=== PATIENT | male | born 1955 | race Caucasian/White ===

== ENCOUNTER 2016-11-02 16:36 | Emergency (ER) | payer SELFPAY ==
[~2016-11-02] VITALS: Ht 170.2 cm; Wt 63.0 kg
[~2016-11-02 16:36] MED LIST: ASPI1TAB69 PO
[2016-11-02 16:37] VITALS: BP 174/81; PULSE 95; RESP 18; TEMP 98.5; O2SAT 97
== END 2016-11-02 18:00 | disposition left against medical advice (07) ==
LOC: NED 16:36
DX: R10.9 Unspecified abdominal pain (principal)
CPT/HCPCS: 99281

== ENCOUNTER → 2017-04-06 | Outpatient (CLI) | payer OTHER ==
[~2017-04-06] MED LIST changes: +ASPI81TA5 PO
[2017-04-06 12:23] LABS: FOLLICLE STIMULATING HORMONE 24.7 mIU/mL (0.7-10.8); LUTEINIZING HORMONE 10.2 mIU/mL (1.2-10.6)
== END ==
LOC: ELAB 09:39
PROVIDERS: ATTEND Urology
DX: E29.1 Testicular hypofunction (principal)
CPT/HCPCS: 36415; 83001; 83002; 84146

== ENCOUNTER → 2017-04-07 | Outpatient (CLI) | payer OTHER ==
[2017-04-07 11:24] LABS: PROTHROMBIN TIME - PATIENT 10.5 SEC (9.8-11.6)
[2017-04-07 11:49] LABS: BICARBONATE 27.4 MEQ/L (21.0-32.0); POTASSIUM 3.5 MEQ/L (3.5-5.1)
--- NOTE | 2017-04-07 11:53 | RADRPT ---
EXAM DATE/TIME: 04/07/2017 11:10 [place] COMPARISON: No previous studies available for comparison. INDICATIONS : Evaluate for pneumonia, pneumothorax, or communicable disease. Pre op for knee surgery. MEDICAL HISTORY : Diverticulitis. Gastroesophageal reflux disease. SURGICAL HISTORY : Colon resection. ENCOUNTER: Initial ACUITY: 1 day PAIN SCORE: 0/10 LOCATION: Bilateral chest FINDINGS: PA and lateral views of the chest demonstrate diminished lung glands with bibasilar subsegmental atel ectasis. Pleural thickening. The cardiomediastinal contours are unremarkable. Osseous structures are intact. CONCLUSION: 1. Bibasilar scarring. 2. No consolidation. Richard Lamb MD on April 07, 2017 at 11:51 Board Certified Radiologist. This report was verified electronically.
[2017-04-07 12:04] LABS: BLOOD, URINE NEG (NEG); COMMENT (UR) CULT NOT INDICATED; CULTURE IF INDICATED CULT NOT INDICATED; GLUCOSE,URINE NEG (NEG); KETONE, URINE NEG (NEG); MUCUS URINE FEW /lpf (OCC); NITRITE,URINE NEG (NEG); URINE COLOR YELLOW (YELLW/STRAW)
--- NOTE | 2017-04-07 13:53 | EKG ---
Date Performed: 04/07/2017 Time Performed: 10:43:41 PTAGE: 62 years EKG: Sinus rhythm POSSIBLE LEFT ATRIAL ENLARGEMENT LOW QRS VOLTAGE IN PRECORDIAL LEADS BORDERLINE ECG Compared to the PREVIOUS TRACING from 06/27/16, no significant change DOCTOR: Michel Mariee Interpretating Date/Time 04/07/2017 13:51:58
== END ==
LOC: CPRE 10:18
PROVIDERS: ATTEND Orthopaedic Surgery
DX: Z01.810 Encounter for preprocedural cardiovascular examination (principal); Z01.811 Encounter for preprocedural respiratory examination; Z01.812 Encounter for preprocedural laboratory examination; S83.241D Other tear of medial meniscus, current injury, right knee, subsequent encounter; R94.31 Abnormal electrocardiogram [ECG] [EKG]; X58.XXXD Exposure to other specified factors, subsequent encounter
CPT/HCPCS: 36415; 71020; 80048; 81001; 85610; 93005

== ENCOUNTER → 2017-04-15 | Day surgery (SDC) | payer OTHER ==
--- NOTE | 2017-04-11 11:50 | MH ---
cc: RUDDYFACUNDOSHADI WHITLOCK DATE OF ADMISSION: 04/15/2017 ADMITTING DIAGNOSIS Medial meniscus tear of the right knee and pain of the right knee. HISTORY OF PRESENT ILLNESS The patient is a 62-year-old white male who has had a rather lengthy history of pain involving his right knee. He had undergone arthroscopic surgery within the previous five years for history of a torn meniscus for which the patient indicated lingering symptoms postoperatively with a soreness about his knee. When he was seen in follow-up evaluation by his treating surgeon he was encouraged to conform to a weight reducing program for further management. Apparently no additional treatment was completed and over the following years the patient conformed to conservative modalities, taking Aleve on an intermittent basis. Within the past six or more months his pain became more pronounced at which time he was seen by his primary care physician. He was prescribed hydrocodone for pain management and later underwent orthopedic evaluation with the undersigned physician in January of this year. At that time he reported lingering pain generalized about his right knee associated with swelling and a frequent clicking sensation. He had noted an occasional giving-way discomfort although there had been no associated falls. 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 At the time of his initial office evaluation x-ray studies were without evidence of acute bony abnormality. There was minimal articular irregularity about the medial femoral condyle with preservation of the joint space both medially and laterally. The patient was diagnosed as having transient synovitis with a possible recurrent internal derangement of his right knee for which he was prescribed tramadol as well as encouraged to utilize Aspercreme versus bile Biofreeze and wear an elastic knee support. He was followed on an outpatient basis thereafter at which time he did describe lingering pain about his right knee for which he subsequently underwent an MRI scan evaluation, the results of which identified a horizontal undersurface tear involving the posterior horn of the medial meniscus with a small free edge radial tear of the body of the medial meniscus. A chondral defect involving the femoral trochlea was also noted. The patient remained symptomatic with pain about his right knee which had been aggravated by weightbearing activities for which treatment options were reviewed. The pros and cons of continuing with conservative management versus operative intervention that would involve arthroscopic surgery were outlined. Emphasis was made regarding the fact that the decision to proceed with surgery would be left entirely to the patient's discretion. The patient felt that his level of discomfort was of such degree that he expressed his desire to proceed with surgery as discussed and in compliance with his wishes he is currently being admitted in order that the above be accomplished. PAST MEDICAL HISTORY His past medical history, hospitalizations and surgeries in addition to previous arthroscopic surgery of his right knee have included: 1. Arthroscopic surgery of his left knee. 2. Partial colon resection for history of diverticulitis. 3. Colonoscopy and medical management for bowel obstruction. The patient's medical illnesses include: 1. Acid reflux for which he takes ranitidine 150 mg daily. 2. Zolpidem is taken on a p.r.n. basis for sleep. 3. He also takes an 81 mg aspirin tablet daily. ALLERGIES He denies any known drug allergies. REVIEW OF SYSTEMS He wears glasses for reading purposes. No headache, seizure or syncope. No sinus congestion. He has had epistaxis in the past. Diminished auditory acuity although hearing aids are not utilized. No tinnitus. No bleeding gums or dysphagia. Denies cough, shortness of breath, upper respiratory infection, tuberculosis. There is a positive history of pneumonia. No angina or heart disease. His appetite is good. Bowel movements are regular. There is a history of hepatitis. No gallbladder disease, ulcers or hemorrhoids. No urinary tract infection. No kidney stones. No prostate disease. Fracture of the right little toe. No psychiatric illness. The remaining review of systems is unremarkable and noncontributory. FAMILY HISTORY The patient has been 31 years. His is 65 years of age and described as being in reasonably good health, although she is an insulin dependent diabetic. He has one daughter indicated to be in good health. Family history is positive for diabetes, heart disease and breast cancer. SOCIAL HISTORY The patient completed a high school education. He is employed as a maintenance worker. He denies active use of tobacco for at least 30 years but had been a 1-1/2 pack per day user for almost 25 years prior to that time. Ethanol consumption on an occasional basis. PHYSICAL EXAMINATION Height 5 feet 7 inches, weight 233 pounds. GENERAL: An alert, oriented and responsive 62-year-old white male who sits quietly upon the examination table with no obvious distress. HEAD, EYES, EARS, NOSE, AND THROAT: Pupils are equal, round and reactive to light. Extraocular movements full. Sclera clear. External nares clear. External auditory canals clear. Dental intact. Mucous membranes pink and moist. Pharynx clear. NECK: Supple. Active range of motion without appreciable pain. Carotid pulse bilaterally. Trachea midline. Thyroid without enlargement. LUNGS: Clear to auscultation and percussion. No CVA tenderness. No discomfort throughout the dorsolumbar spine. HEART: Regular rhythm. No murmur or gallop. ABDOMEN: Soft, nontender. Bowel sounds present. RECTAL: Per primary care physician. EXTREMITIES: Right Knee: No significant swelling or effusion. There is minimal medial joint line tenderness without palpable deformity. Apprehension and compression sign negative. Limited mobility in the 100+ degree range of motion with pain at the extremes of mobility. No associated crepitation or instability. No collateral ligamentous laxity. Chula test and drawer sign negative. Pivot shift and Lauri sign positive for medial compartment pain. Distal sensory grossly intact. Antalgic gait. NEUROLOGIC: Cranial nerves II-XII grossly intact. IMPRESSION 1. Medial meniscus tear, right knee. 2. Pain, right knee. PLAN Arthroscopic surgery right knee, possible arthrotomy. The nature of the planned surgical procedure, the potential complications and risks associated, the expectations of surgery and the consent form were thoroughly reviewed with the patient prior to admission to the hospital. Steve has indicated his full understanding regarding all of the above and given consent to proceed with treatment as outlined. Medical evaluation and clearance for surgery will be completed by his primary care physician, Dr. Sinan Phillip. Shadi Ramirez MD NBS/BT /11:18 AM /11:34 AM
[~2017-04-15] VITALS: Ht 170.2 cm; Wt 104.9 kg
[~2017-04-15] MED LIST changes: +*morphine SULFATE 8 MG/ML PERIprocedure ONLY ONE; +ACETAMINOPHEN/HYDROcodone 325 MG/5 MG TAB PO PRN; -ASPI1TAB69 PO; +CHLORHEXIDINE GLUCONATE 2 % 1 PACK (2 CLOTHS) TOPICAL PRN; +DEXAMETHASONE SOD PHOS 4 MG/ML VIAL IV ONE; +DO NOT ADM ANY ANTICOAGULANT DRUGS PRN; +FAMOTIDINE 20 MG/2 ML VIAL ONE; +INSULIN HUMAN REGULAR 1,000 UNITS/10 ML VIAL SQ PRN; +KETOROLAC TROMETHAMINE 30 MG/ML (IVP) VIAL IV PUSH ONE; +LACTATED RINGER'S 1000 ML INJ 2,000 ML IV ONE; +LACTATED RINGER'S 1000 ML IV PRN; +LIDOCAINE HCL 1% PF 5 ML AMPULE OTHER ONE; +LIDOCAINE HCL 2% 50 ML VIAL ONE; +METOPROLOL TARTRATE 25 MG TAB PO PRN; +MIDAZOLAM HCL 2 MG/2 ML VIAL IV ONE; +MORPHINE SULFATE 10 MG/ML INJ IM PRN; +ONDANSETRON HCL 4 MG/2 ML VIAL IV PUSH ONE; +PHENYLEPH/NS 1000 MCG/10 ML SYR IV ONE; +POVIDONE IODINE 5% (ANTISEPSIS KIT) 4 APPLICATIONS EACH NARE PRN; +POVIDONE IODINE 7.5% SCRUB 118 ML BOTTLE TOPICAL SCH; +PROMETHAZINE INJ 25 MG/ML VIAL IM PRN; +PROPOFOL 200 MG/20 ML AMP IV ONE; +ROCURONIUM INJ 50 MG/5 ML SYRINGE IV PUSH ONE; +SODIUM CHLORID 0.9% 500 ML IV PRN; +SODIUM CHLORIDE 0.9% 20 ML VIAL IV ONE; +SUCCINYLCHOLINE CHLORIDE 100 MG/5 ML SYRINGE IV PUSH ONE; +TRIAMCINOLONE ACETONIDE 40 MG/ML VIAL ONE; +ceFAZolin 2 GM PREMIX 50 ML IV SCH; +ePHEDrine/NS 25 MG/5 ML SYR IV ONE
[2017-04-15 09:42] VITALS: BP 130/64; PULSE 68; RESP 18; TEMP 97.5; O2SAT 99
--- NOTE | 2017-04-15 19:19 | MP ---
cc: SHADI RAMIREZ DATE OF SURGERY 04/15/17 PREOPERATIVE DIAGNOSIS Medial meniscus tear of the right knee and pain of the right knee. POSTOPERATIVE DIAGNOSIS Medial meniscus tear of the right knee and pain of the right knee including synovial plica right knee PROCEDURE 1. Partial medial meniscectomy right knee 2. Resection synovial plica right knee SURGEON Yael Ramirez MD ANESTHESIA General endotracheal PROCEDURE IN DETAIL Following the induction of satisfactory general anesthesia by endotracheal intubation as completed per the Department of Anesthesia, examination of the right knee revealed a satisfactory range of motion with no appreciable ligamentous instability. The extremity proper was positioned in the staff assistant knee montoya, prepped with Betadine solution and draped into a sterile field in the routine manner. Prior to initiation of the actual procedure, the standard time-out protocol was completed. All parameters were appropriately addressed and confirmed by operating room personnel. Arthroscopic instrumentation was introduced through stab wound utilizing cannula with sharp and blunt trocar. The inflow irrigation by way of a medial suprapatellar portal, the arthroscope through a lateral parapatellar portal and a probe through a medial parapatellar portal. Examination of the suprapatellar pouch revealed a prominent synovial plica extending along the superior aspect of the suprapatellar region, mild reactive synovitis. There was localized degenerative change involving the patellofemoral articulation. Within the medial compartment a degenerative tear of the posterior horn of the medial meniscus was readily identified as was articular irregularity along the surface of the femoral condyle. Proliferative synovium extended into the intercondylar region. The anterior cruciate ligament was identified and noted to be intact. Examination of the lateral compartment was without evidence of internal derangement. The lateral meniscus appeared intact with continuity of articular surfaces. Attention was redirected to the medial compartment. Utilizing a 4.0 Saber resector, a partial medial meniscectomy was accomplished as well as generalized debridement along the articular surface of the femoral condyle. The instrument was thereafter oriented into the suprapatellar region and the previously identified synovial plica was resected. Upon completion of same, the joint space was thoroughly lavaged and suctioned dry, an intra-articular Kenalog lidocaine injection completed, portal sites reapproximated with Steri-Strips over which Xeroform gauze and a bulky dry sterile dressing were placed. Anesthesia was discontinued and the patient thus transferred to a hospital stretcher and returned to the recovery room in satisfactory condition having tolerated his operative procedure well. Estimated blood loss was less than 5 mL. MD MARY BETH Noble/ /8:06 AM /7:00 PM
== END | disposition home or self-care (01) ==
LOC: HSDC 05:03
PROVIDERS: ATTEND Orthopaedic Surgery
DX: M23.221 Derangement of posterior horn of medial meniscus due to old tear or injury, right knee (principal); M25.561 Pain in right knee; M67.51 Plica syndrome, right knee
CPT/HCPCS: 01400; 29881; J0690; J2270; J3301; J7120; J0330; J1100; J1885; J2250; J2370; J2405; J3010

== ENCOUNTER 2017-12-23 12:39 | Observation (INO) | payer OTHER ==
[~2017-12-23] VITALS: Ht 170.2 cm; Wt 120.0 kg
[~2017-12-23 12:39] MED LIST changes: -*morphine SULFATE 8 MG/ML PERIprocedure ONLY ONE; -ACETAMINOPHEN/HYDROcodone 325 MG/5 MG TAB PO PRN; -ASPI81TA5 PO; -CHLORHEXIDINE GLUCONATE 2 % 1 PACK (2 CLOTHS) TOPICAL PRN; -DEXAMETHASONE SOD PHOS 4 MG/ML VIAL IV ONE; -DO NOT ADM ANY ANTICOAGULANT DRUGS PRN; +ECASA81 PO; -FAMOTIDINE 20 MG/2 ML VIAL ONE; -INSULIN HUMAN REGULAR 1,000 UNITS/10 ML VIAL SQ PRN; -KETOROLAC TROMETHAMINE 30 MG/ML (IVP) VIAL IV PUSH ONE; -LACTATED RINGER'S 1000 ML INJ 2,000 ML IV ONE; -LACTATED RINGER'S 1000 ML IV PRN; -LIDOCAINE HCL 1% PF 5 ML AMPULE OTHER ONE; -LIDOCAINE HCL 2% 50 ML VIAL ONE; -METOPROLOL TARTRATE 25 MG TAB PO PRN; -MIDAZOLAM HCL 2 MG/2 ML VIAL IV ONE; -MORPHINE SULFATE 10 MG/ML INJ IM PRN; -ONDANSETRON HCL 4 MG/2 ML VIAL IV PUSH ONE; -PHENYLEPH/NS 1000 MCG/10 ML SYR IV ONE; -POVIDONE IODINE 5% (ANTISEPSIS KIT) 4 APPLICATIONS EACH NARE PRN; -POVIDONE IODINE 7.5% SCRUB 118 ML BOTTLE TOPICAL SCH; -PROMETHAZINE INJ 25 MG/ML VIAL IM PRN; -PROPOFOL 200 MG/20 ML AMP IV ONE; -ROCURONIUM INJ 50 MG/5 ML SYRINGE IV PUSH ONE; -SODIUM CHLORID 0.9% 500 ML IV PRN; -SODIUM CHLORIDE 0.9% 20 ML VIAL IV ONE; -SUCCINYLCHOLINE CHLORIDE 100 MG/5 ML SYRINGE IV PUSH ONE; -TRIAMCINOLONE ACETONIDE 40 MG/ML VIAL ONE; -ceFAZolin 2 GM PREMIX 50 ML IV SCH; -ePHEDrine/NS 25 MG/5 ML SYR IV ONE
[2017-12-23 12:50] VITALS: BP 162/77; PULSE 87; RESP 20; TEMP 98.5; O2SAT 97
[2017-12-23] MEDS ORDERED: CITA20TA4 PO (13:42)
[2017-12-23] MEDS ORDERED: SILD20TA11 PO (13:42)
[2017-12-23] MEDS ORDERED: ZOLP10TA3 PO (13:42)
[2017-12-23] MEDS ORDERED: [UNRECOGNIZED DRUG - OTHER] PO (13:42)
--- NOTE | 2017-12-23 14:07 | PD ---
HPI Chief Complaint: Respiratory Symptoms Time Seen by Provider: 13:47 Travel History International Travel<30 days: No Contact w/Intl Traveler<30days: No Traveled to known affect area: No History of Present Illness HPI 62-year-old male complains of chest discomfort and shortness of breath. Patient states that the symptoms started about 2 weeks ago. Patient states that the chest discomfort and shortness of breath got better and got worse again this week. Patient states that the chest discomfort is substernal chest pressure without radiation. Patient denies palpitation. Patient states that he has nausea and diaphoresis. Patient denies any coughing congestion fever chills. Patient complained of shortness of breath. Patient states that the chest discomfort is worse with exertion. Patient took aspirin 81 mg daily. Patient did not take aspirin today. Patient denies history hypertension, diabetes, hyperlipidemia. Patient is non-smoker. Patient denied family history of heart disease. PFSH Past Medical History Cancer: No Cardiovascular Problems: No Diabetes: No Diminished Hearing: No Diverticulitis: Yes Endocrine: No Gastrointestinal Disorders: Yes (GERD, DIVERTICULITIS) GERD: Yes Genitourinary: Yes (hesitation starting stream) Hepatitis: Yes (UNKNOWN TYPE) Hiatal Hernia: No Immune Disorder: No Musculoskeletal: Yes (R KNEE PAIN) Neurologic: Yes ( hx of VERTIGO) Psychiatric: No Reproductive: No Respiratory: Yes (SLEEP APNEA ) Sleep Apnea: Yes (doesn't use c-pap) Thyroid Disease: No Ulcer: No Past Surgical History Abdominal Surgery: Yes (18" OF COLON REMOVED) AICD: No Arteriovenous Shunt: No Cardiac Surgery: No Ear Surgery: No Endocrine Surgery: No Eye Surgery: No Genitourinary Surgery: No Gynecologic Surgery: No Insulin Pump: No Joint Replacement: No Oral Surgery: No Pacemaker: No Thoracic Surgery: No Other Surgery: Yes Social History Alcohol Use: Yes Tobacco Use: No Substance Use: No Allergies-Medications (Allergen,Severity, Reaction): Coded Allergies: No Known Allergies (Unverified Adverse Reaction, Unknown, 12/23/17) Reported Meds & Prescriptions Reported Meds & Active Scripts Active Reported [bymyltadalafil] 5 Mg PO DAILY Sildenafil 20 Mg Tab 20 Mg PO DAILY PRN Zolpidem (Zolpidem Tartrate) 10 Mg Tab 10 Mg PO HS PRN Citalopram (Citalopram Hydrobromide) 20 Mg Tab 20 Mg PO DAILY Aspirin DR (Aspirin) 81 Mg Tabdr 81 Mg PO DAILY Review of Systems General / Constitutional: No: Fever Eyes: No: Visual changes HENT: No: Headaches Cardiovascular: Positive: Chest Pain or Discomfort Respiratory: Positive: Shortness of Breath Gastrointestinal: No: Abdominal Pain Genitourinary: No: Dysuria Musculoskeletal: No: Pain Skin: No Rash Neurologic: No: Weakness Psychiatric: No: Depression Endocrine: No: Polydipsia Hematologic/Lymphatic: No: Easy Bruising Physical Exam Narrative GENERAL: Well-nourished, well-developed patient. SKIN: Focused skin assessment warm/dry. HEAD: Normocephalic. EYES: No scleral icterus. No injection or drainage. NECK: Supple, trachea midline. No JVD or lymphadenopathy. CARDIOVASCULAR: Regular rate and rhythm without murmurs, gallops, or rubs. RESPIRATORY: Breath sounds equal bilaterally. No accessory muscle use. GASTROINTESTINAL: Abdomen soft, non-tender, nondistended. MUSCULOSKELETAL: No cyanosis, or edema. BACK: Nontender without obvious deformity. No CVA tenderness. Neurologic exam normal. Data Data Last Documented VS Vital Signs Date Time Temp Pulse Resp B/P (MAP) Pulse Ox O2 Delivery O2 Flow Rate FiO2 12/23/17 12:50 98.5 87 20 162/77 (105) 97 Orders Orders Complete Blood Count With Diff (12/23/17 13:06) Basic Metabolic Panel (Bmp) (12/23/17 13:06) Chest, Pa & Lat (12/23/17 13:06) Blood Culture (12/23/17 13:06) Iv Access Insert/Monitor (12/23/17 13:06) Ecg Monitoring (12/23/17 13:06) Oxygen Administration (12/23/17 13:06) Oximetry (12/23/17 13:06) Electrocardiogram (12/23/17 13:06) Creatine Kinase (Cpk) (12/23/17 13:51) Troponin I (12/23/17 13:51) Prothrombin Time / Inr (Pt) (12/23/17 13:51) Act Partial Throm Time (Ptt) (12/23/17 13:51) Blood Culture (12/23/17 13:51) Hepatic Functional Panel (12/23/17 13:51) Lipase (12/23/17 13:51) Aspirin (Aspirin) (12/23/17 14:15) Labs Laboratory Tests Test 12/23/17 13:53 White Blood Count 12.5 TH/MM3 Red Blood Count 5.65 MIL/MM3 Hemoglobin 16.5 GM/DL Hematocrit 48.5 % Mean Corpuscular Volume 85.8 FL Mean Corpuscular Hemoglobin 29.2 PG Mean Corpuscular Hemoglobin Concent 34.0 % Red Cell Distribution Width 14.4 % Platelet Count 264 TH/MM3 Mean Platelet Volume 7.7 FL Neutrophils (%) (Auto) 76.3 % Lymphocytes (%) (Auto) 13.1 % Monocytes (%) (Auto) 6.7 % Eosinophils (%) (Auto) 3.2 % Basophils (%) (Auto) 0.7 % Neutrophils # (Auto) 9.5 TH/MM3 Lymphocytes # (Auto) 1.6 TH/MM3 Monocytes # (Auto) 0.8 TH/MM3 Eosinophils # (Auto) 0.4 TH/MM3 Basophils # (Auto) 0.1 TH/MM3 CBC Comment DIFF FINAL Differential Comment Prothrombin Time 10.1 SEC Prothromb Time International Ratio 1.0 RATIO Activated Partial Thromboplast Time 28.0 SEC Blood Urea Nitrogen 19 MG/DL Creatinine 1.16 MG/DL Random Glucose 89 MG/DL Calcium Level 9.1 MG/DL Sodium Level 139 MEQ/L Potassium Level 3.9 MEQ/L Chloride Level 103 MEQ/L Carbon Dioxide Level 25.5 MEQ/L Anion Gap 11 MEQ/L Estimat Glomerular Filtration Rate 64 ML/MIN Total Bilirubin 0.4 MG/DL Direct Bilirubin 0.1 MG/DL Indirect Bilirubin 0.3 MG/DL Aspartate Amino Transf (AST/SGOT) 23 U/L Alanine Aminotransferase (ALT/SGPT) 32 U/L Alkaline Phosphatase 103 U/L Total Creatine Kinase 205 U/L Troponin I LESS THAN 0.02 NG/ML Total Protein 7.5 GM/DL Albumin 3.8 GM/DL Lipase 170 U/L MDM Medical Decision Making Medical Screen Exam Complete: Yes Emergency Medical Condition: Yes Interpretation(s) EKG shows sinus rhythm nonspecific ST-T wave change. 1442 PM. EKG shows sinus rhythm nonspecific ST-T wave change. 1450 p.m. CBC WBC 12.5. Hemoglobin 16.5 hematocrit 40.5. 76 neutrophil. CMP within normal limits. Cardiac enzymes are normal. Differential Diagnosis Differential diagnosis including musculoskeletal, angina, VA, PE, pneumothorax. Narrative Course 62-year-old male with chest pain and shortness of breath. Aspirin 325 mg p.o. given. Patient will be admitted to the chest pain center. Diagnosis Primary Impression: Chest pain Qualified Codes: R07.9 - Chest pain, unspecified Admitting Information Admitting Physician Requests: Observation Hung Gutierrez MD Dec 23, 2017 14:07
[2017-12-23 14:12] LABS: AUTOMATED NEUTROPHIL # 9.5 TH/MM3 (1.8-7.7); BASOPHIL # 0.1 TH/MM3 (0-0.2); BASOPHIL % 0.7 % (0.0-2.0); EOSINOPHIL # 0.4 TH/MM3 (0-0.4); EOSINOPHIL % 3.2 % (0.0-4.0); HEMATOCRIT 48.5 % (39.0-51.0); HEMOGLOBIN 16.5 GM/DL (13.0-17.0); LYMPH % 13.1 % (9.0-44.0); LYMPHOCYTE # 1.6 TH/MM3 (1.0-4.8); MEAN CELL VOLUME 85.8 FL (80.0-100.0); MEAN CORPUSCULAR HEMOGLOBIN 29.2 PG (27.0-34.0); MEAN PLATELET VOLUME 7.7 FL (7.0-11.0); MONO % 6.7 % (0.0-8.0); MONOCYTE # 0.8 TH/MM3 (0-0.9); NEUT % 76.3 % (16.0-70.0); PLATELET COUNT 264 TH/MM3 (150-450); RED BLOOD COUNT 5.65 MIL/MM3 (4.50-5.90); RED CELL DISTRIBUTION WIDTH 14.4 % (11.6-17.2); WHITE BLOOD COUNT 12.5 TH/MM3 (4.0-11.0)
[2017-12-23] MEDS ORDERED: ASPIRIN 325 MG TAB PO ONE (14:15)
[2017-12-23 14:27] LABS: PROTHROMBIN TIME - PATIENT 10.1 SEC (9.8-11.6)
[2017-12-23 14:31] LABS: ALBUMIN 3.8 GM/DL (3.4-5.0); ALT (GPT) 32 U/L (12-78); AST (GOT) 23 U/L (15-37); BICARBONATE 25.5 MEQ/L (21.0-32.0); CALCIUM 9.1 MG/DL (8.5-10.1); CREATININE 1.16 MG/DL (0.60-1.30); DIRECT BILIRUBIN ADULT 0.1 MG/DL (0.0-0.2)
[2017-12-23 14:34] LABS: ALKALINE PHOSPHATASE 103 U/L (45-117); INDIRECT BILIRUBIN 0.3 MG/DL (0.0-0.8); TOTAL BILIRUBIN ADULT 0.4 MG/DL (0.2-1.0); TOTAL PROTEIN 7.5 GM/DL (6.4-8.2); TROPONIN I LESS THAN 0.02 NG/ML (0.02-0.05)
--- NOTE | 2017-12-23 14:39 | RADRPT ---
EXAM DATE: 12/23/2017 1:44 PM EDT AGE/SEX: 62 years / Male INDICATIONS: Short of breath for one week, no chest pain CLINICAL DATA: This is the patient's initial encounter. Patient reports that signs and symptoms have been present for 1 week and indicates a pain score of 0/10. MEDICAL/SURGICAL HISTORY: . Colon resection. COMPARISON: [facility] [place], CHEST PA & LAT, 04/07/2017. . FINDINGS: Frontal and lateral views of the chest demonstrate a normal-sized cardiac silhouette. Lungs are mildl y underinflated with linear opacities at the lung bases. No pleural effusion or pneumothorax is ident ified. The bones and soft tissues demonstrate no acute finding. There are degenerative changes of the thoracic spine. CONCLUSION: There are linear opacities at the lung bases most likely representing subsegmental atelectasis or sca r. Otherwise, no acute finding is identified. Electronically signed by: Kelby Sanz MD 12/23/2017 2:09 PM EDT
[2017-12-23] MEDS ORDERED: SODIUM CHLORIDE 0.9% FLUSH 10 ML FLUSH IV FLUSH PRN (15:00)
[2017-12-23] MEDS ORDERED: ACETAMINOPHEN 500 MG CPLT PO PRN (15:00)
--- NOTE | 2017-12-23 15:43 | HHI.HP ---
[facility] Primary Care Physician Sinan Phillip DO Chief Complaint Shortness of breath History of Present Illness This is a 62-year-old male the presents to ED via private vehicle with his with complaint of shortness of breath essentially for 2 weeks. States that shortness of breath began early last week and was essentially constant for 2 days. It was with rest or with activity although it did worsen with activity. Then his symptoms resolved for 5 days that began a few days ago. Denies chest discomfort. He also states that it feels as if he cannot take in a deep breath. Denies coughing. Denies wheezing. Denies hemoptysis. Denies fevers or chills. Denies recent travel. Denies swelling in his legs. Denies history of CAD. States he has never had a stress test. He has history of sleep apnea but does not use a device. Denies hypertension, hyperlipidemia, diabetes, and known CAD. Review of Systems General: Patient denies fevers, chills, and recent travel. HEENT: Patient denies headache, sore throat, difficulty swallowing. Cardiovascular: Denies chest discomfort as mentioned above. Denies sensation of heart beating rapidly or irregularly. No syncope. Denies diaphoresis. Respiratory: He has been short of breath at rest and with exertion. Denies inspirational chest discomfort but states it feels as if he cannot take in a deep breath.. Denies coughing wheezing or hemoptysis. GI: Patient denies nausea, vomiting, diarrhea, abdominal pain, bloody stools. Musculoskeletal: Patient denies joint pain or edema. Denies calf pain or edema. Neurovascular: Patient denies numbness, tingling, weakness in extremities. Denies headache. Endocrine: Denies polyuria and polydipsia. Hematologic: Denies easy bruising. Skin: Denies rash or itching. Past Family Social History Allergies: Coded Allergies: No Known Allergies (Unverified Adverse Reaction, Unknown, 12/23/17) Past Medical History Denies hypertension, hyperlipidemia, diabetes, and known CAD. Past Surgical History Colon resection secondary to diverticulitis. Reported Medications Reported Meds & Active Scripts Active Reported [bymyltadalafil] 5 Mg PO DAILY Sildenafil 20 Mg Tab 20 Mg PO DAILY PRN Zolpidem (Zolpidem Tartrate) 10 Mg Tab 10 Mg PO HS PRN Citalopram (Citalopram Hydrobromide) 20 Mg Tab 20 Mg PO DAILY Aspirin DR (Aspirin) 81 Mg Tabdr 81 Mg PO DAILY Active Ordered Medications Current Medications Medications (Trade) Dose Ordered Sig/Kurt Route Start Time Stop Time Status Last Admin (NS Flush) 2 ml UNSCH PRN IV FLUSH 12/23/17 15:00 (NS Flush) 2 ml BID IV FLUSH 12/23/17 21:00 (Tylenol) 500 mg Q4H PRN PO 12/23/17 15:00 (Zofran Odt) 4 mg Q6H PRN PO 12/23/17 15:45 UNV (Aspirin) 325 mg DAILY PO 12/24/17 09:00 UNV (Duoneb Neb) 1 ampule Q4HR NEB PRN INH 12/23/17 15:45 UNV (Catapres) 0.1 mg Q4H PRN PO 12/23/17 15:45 UNV Family History Denies early onset heart disease in family. States his mother had an MS but it was in her 80s. Social History Quit smoking approximately 30 years ago. Prior to that he smoked about a pack and a half for 15 years. Occasional alcohol. Denies illicit drug use. Physical Exam Vital Signs Vital Signs Date Time Temp Pulse Resp B/P (MAP) Pulse Ox O2 Delivery O2 Flow Rate FiO2 12/23/17 12:50 98.5 87 20 162/77 (105) 97 Physical Exam GENERAL: This is a well-nourished, well-developed patient, in no apparent distress. Patient speaks in clear complete sentences. Patient is pleasant. HEENT: Head is atraumatic and normocephalic. Neck is supple without lymphadenopathy and trachea is midline. No JVD or carotid bruits. CARDIOVASCULAR: Regular rate and rhythm without murmurs, gallops, or rubs. RESPIRATORY: Clear to auscultation. Breath sounds equal bilaterally. No wheezes , rales, or rhonchi. Chest wall is nontender. No use of accessory muscles. GASTROINTESTINAL: Abdomen is nontender, nondistended. Abdomen soft. No obvious pulsatile mass or bruit. No CVA tenderness. Strong femoral pulses bilaterally. Normal bowel sounds in all quadrants. MUSCULOSKELETAL: Patient is moving upper and lower extremities freely. No calf tenderness or edema, no Homans sign. Strong pulses in upper and lower extremities. NEUROLOGICAL: Patient is alert and oriented. Cranial nerves 2-12 are grossly intact. No focal deficits and speech is clear. SKIN: No rash and turgor is normal. Laboratory Laboratory Tests Test 12/23/17 13:53 White Blood Count 12.5 Red Blood Count 5.65 Hemoglobin 16.5 Hematocrit 48.5 Mean Corpuscular Volume 85.8 Mean Corpuscular Hemoglobin 29.2 Mean Corpuscular Hemoglobin Concent 34.0 Red Cell Distribution Width 14.4 Platelet Count 264 Mean Platelet Volume 7.7 Neutrophils (%) (Auto) 76.3 Lymphocytes (%) (Auto) 13.1 Monocytes (%) (Auto) 6.7 Eosinophils (%) (Auto) 3.2 Basophils (%) (Auto) 0.7 Neutrophils # (Auto) 9.5 Lymphocytes # (Auto) 1.6 Monocytes # (Auto) 0.8 Eosinophils # (Auto) 0.4 Basophils # (Auto) 0.1 CBC Comment DIFF FINAL Differential Comment Prothrombin Time 10.1 Prothromb Time International Ratio 1.0 Activated Partial Thromboplast Time 28.0 Blood Urea Nitrogen 19 Creatinine 1.16 Random Glucose 89 Calcium Level 9.1 Sodium Level 139 Potassium Level 3.9 Chloride Level 103 Carbon Dioxide Level 25.5 Anion Gap 11 Estimat Glomerular Filtration Rate 64 Total Bilirubin 0.4 Direct Bilirubin 0.1 Indirect Bilirubin 0.3 Aspartate Amino Transf (AST/SGOT) 23 Alanine Aminotransferase (ALT/SGPT) 32 Alkaline Phosphatase 103 Total Creatine Kinase 205 Troponin I LESS THAN 0.02 Total Protein 7.5 Albumin 3.8 Lipase 170 Date/Time Source Procedure Growth Status 12/23/17 13:57 Blood Peripheral Aerobic Blood Culture Pending Received 12/23/17 13:57 Blood Peripheral Anaerobic Blood Culture Pending Received Result Diagram: 12/23/17 1353 12/23/17 1353 Imaging Last 24 hours Impressions Chest X-Ray 12/23/17 1306 Signed Impressions: CONCLUSION: There are linear opacities at the lung bases most likely representing subsegmen nolan atelectasis or scar. Otherwise, no acute finding is identified. Course Initial EKG is sinus rhythm rate of [address] segment depressions or elevations. Caprini VTE Risk Assessment Caprini VTE Risk Assessment: Mod/High Risk (score >= 2) Caprini Risk Assessment Model Point Value = 1 Point Value = 2 Point Value = 3 Point Value = 5 Age 41-60 Minor surgery BMI > 25 kg/m2 Swollen legs Varicose veins or History of unexplained or recurrent spontaneous Oral contraceptives or hormone replacement Sepsis (< 1 month) Serious lung disease, including pneumonia (< 1 month) Abnormal pulmonary function Acute myocardial infarction Congestive heart failure (< 1 month) History of inflammatory bowel disease Medical patient at bed rest Age 61-74 Arthroscopic surgery Major open surgery (> 45 min) Laparoscopic surgery (> 45 min) Malignancy Confined to bed (> 72 hours) Immobilizing plaster cast Central venous access Age >= 75 History of VTE Family history of VTE Factor V Leiden Prothrombin [id number] Lupus anticoagulant Anticardiolipin antibodies Elevated serum homocysteine Heparin-induced thrombocytopenia Other congenital or acquired thrombophilia Stroke (< 1 month) Elective arthroplasty Hip, pelvis, or leg fracture Acute spinal cord injury (< 1 month) Prophylaxis Regimen Total Risk Factor Score Risk Level Prophylaxis Regimen 0-1 Low Early ambulation 2 Moderate Order ONE of the following: *Sequential Compression Device (SCD) *Heparin 5000 units SQ BID 3-4 Higher Order ONE of the following medications: *Heparin 5000 units SQ TID *Enoxaparin/Lovenox 40 mg SQ daily (WT < 150 kg, CrCl > 30 mL/min) *Enoxaparin/Lovenox 30 mg SQ daily (WT < 150 kg, CrCl > 10-29 mL/min) *Enoxaparin/Lovenox 30 mg SQ BID (WT < 150 kg, CrCl > 30 mL/min) AND/OR *Sequential Compression Device (SCD) 5 or more Highest Order ONE of the following medications: *Heparin 5000 units SQ TID (Preferred with Epidurals) *Enoxaparin/Lovenox 40 mg SQ daily (WT < 150 kg, CrCl > 30 mL/min) *Enoxaparin/Lovenox 30 mg SQ daily (WT < 150 kg, CrCl > 10-29 mL/min) *Enoxaparin/Lovenox 30 mg SQ BID (WT < 150 kg, CrCl > 30 mL/min) AND *Sequential Compression Device (SCD) Assessment and Plan Assessment and Plan * Shortness of breath: Patient has had the shortness of breath as previously mentioned. Denies chest discomfort. Patient will be seen by cardiology in the chest pain center. States he would not be able to go on the treadmill as he gets short of breath with even very short walking. Subsequently patient would have a Lexiscan in the morning if he rules out. Patient would likely be discharged home if the stress test were to be nonischemic with instructions to follow-up with PCP and return to ED for interval issues. Also pending is a d- dimer. * Sleep apnea: Patient has been instructed to discuss this with his PCP. * Obesity: Patient counseled on importance of diet, exercise, weight loss. Patient is stable at this time. He is agreeable to this plan. Jose Juan Arvizu Dec 23, 2017 15:43
[2017-12-23] MEDS ORDERED: cloNIDine HCL 0.1 MG TAB PO PRN (15:45)
[2017-12-23] MEDS ORDERED: RESP: ALBUTEROL 2.5 MG/IPRATROPIUM 0.5 MG NEB (PRN) INH (15:45)
[2017-12-23] MEDS ORDERED: ONDANSETRON ODT 4 MG TAB PO PRN (15:45)
[2017-12-23 16:29] VITALS: PULSE 68
[2017-12-23 16:45] VITALS: BP 160/74; PULSE 70; RESP 20; TEMP 98.2; O2SAT 98
[2017-12-23 18:33] LABS: TROPONIN I LESS THAN 0.02 NG/ML (0.02-0.05)
[2017-12-23 19:25] VITALS: PULSE 77
[2017-12-23 20:02] VITALS: BP 137/73; PULSE 70; RESP 18; TEMP 98.7; O2SAT 95
[2017-12-23] MEDS: SODIUM CHLORIDE 0.9% FLUSH 10 ML FLUSH IV FLUSH SCH (20:15)
[2017-12-23 21:08] LABS: TROPONIN I LESS THAN 0.02 NG/ML (0.02-0.05)
[2017-12-23 23:35] VITALS: BP 140/73; PULSE 63; RESP 18; TEMP 97.9; O2SAT 96
[2017-12-24 01:40] VITALS: PULSE 60
[2017-12-24 03:34] VITALS: BP 126/78; PULSE 66; RESP 18; TEMP 98.1; O2SAT 95
[2017-12-24 07:32] VITALS: PULSE 67
[2017-12-24 08:00] VITALS: BP 132/68; PULSE 63; RESP 20; TEMP 97.9; O2SAT 93; O2SAT 96
[2017-12-24] MEDS ORDERED: ASPIRIN 325 MG TAB PO SCH (09:00)
--- NOTE | 2017-12-24 09:08 | PD.CARD.PN ---
Subjective Subjective Remarks 62-year-old gentleman who complains of increasing shortness of breath over the last week associated with a sense of exhaustion and fatigue. The shortness of breath is described as a sense of not being able to take a deep breath. Patient denied cough but the has indeed noticed coughing over the last week. He denies sputum or hemoptysis. He has sleep apnea but his sleeping pattern has not changed significantly. He has had no real chest pain but does have some discomfort when he tries to take a deep breath. He also complains of some cramping pain in his left upper and lower leg. He has had no travel, trauma, or precipitating events or thrombus. Medical records as documented were reviewed and the patient was discussed with the physician option trader. Course and management were discussed and the plan established. Objective Medications Current Medications Medications (Trade) Dose Ordered Sig/Kurt Route Start Time Stop Time Status Last Admin (NS Flush) 2 ml UNSCH PRN IV FLUSH 12/23/17 15:00 (NS Flush) 2 ml BID IV FLUSH 12/23/17 21:00 12/23/17 20:15 (Tylenol) 500 mg Q4H PRN PO 12/23/17 15:00 (Zofran Odt) 4 mg Q6H PRN PO 12/23/17 15:45 (Aspirin) 325 mg DAILY PO 12/24/17 09:00 (Duoneb Neb) 1 ampule Q4HR NEB PRN INH 12/23/17 15:45 (Catapres) 0.1 mg Q4H PRN PO 12/23/17 15:45 Vital Signs / I&O Vital Signs Date Time Temp Pulse Resp B/P (MAP) Pulse Ox O2 Delivery O2 Flow Rate FiO2 12/24/17 07:32 67 12/24/17 03:34 98.1 66 18 126/78 (94) 95 12/24/17 01:40 60 12/23/17 23:35 97.9 63 18 140/73 (95) 96 12/23/17 20:02 98.7 70 18 137/73 (94) 95 12/23/17 19:25 77 12/23/17 16:45 98.2 70 20 160/74 (102) 98 12/23/17 16:29 68 12/23/17 12:50 98.5 87 20 162/77 (105) 97 Physical Exam Obese white male resting with no discomfort Eyes PERRLA EOMI sclera clear Mouth mucous membranes moist and well papillated teeth in good state of repair no lesions Neck supple no JVD masses nodes or bruits Chest diminished breath sounds at the bases but no rales wheezes or rhonchi Cardiovascular regular sinus rhythm with no gallops rubs or murmurs Abdomen large scar in lower abdomen well-healed with no tenderness guarding or rebound Extremities reveal no clubbing cyanosis or edema there is no palpable mass no heat and a negative Homans sign Laboratory Laboratory Tests Test 12/23/17 13:53 12/23/17 17:15 12/23/17 20:20 White Blood Count 12.5 TH/MM3 Red Blood Count 5.65 MIL/MM3 Hemoglobin 16.5 GM/DL Hematocrit 48.5 % Mean Corpuscular Volume 85.8 FL Mean Corpuscular Hemoglobin 29.2 PG Mean Corpuscular Hemoglobin Concent 34.0 % Red Cell Distribution Width 14.4 % Platelet Count 264 TH/MM3 Mean Platelet Volume 7.7 FL Neutrophils (%) (Auto) 76.3 % Lymphocytes (%) (Auto) 13.1 % Monocytes (%) (Auto) 6.7 % Eosinophils (%) (Auto) 3.2 % Basophils (%) (Auto) 0.7 % Neutrophils # (Auto) 9.5 TH/MM3 Lymphocytes # (Auto) 1.6 TH/MM3 Monocytes # (Auto) 0.8 TH/MM3 Eosinophils # (Auto) 0.4 TH/MM3 Basophils # (Auto) 0.1 TH/MM3 CBC Comment DIFF FINAL Differential Comment Prothrombin Time 10.1 SEC Prothromb Time International Ratio 1.0 RATIO Activated Partial Thromboplast Time 28.0 SEC D-Dimer Quantitative (PE/DVT) 0.29 MG/L FEU Blood Urea Nitrogen 19 MG/DL Creatinine 1.16 MG/DL Random Glucose 89 MG/DL Calcium Level 9.1 MG/DL Sodium Level 139 MEQ/L Potassium Level 3.9 MEQ/L Chloride Level 103 MEQ/L Carbon Dioxide Level 25.5 MEQ/L Anion Gap 11 MEQ/L Estimat Glomerular Filtration Rate 64 ML/MIN Total Bilirubin 0.4 MG/DL Direct Bilirubin 0.1 MG/DL Indirect Bilirubin 0.3 MG/DL Aspartate Amino Transf (AST/SGOT) 23 U/L Alanine Aminotransferase (ALT/SGPT) 32 U/L Alkaline Phosphatase 103 U/L Total Creatine Kinase 205 U/L 234 U/L 245 U/L Troponin I LESS THAN 0.02 NG/ML LESS THAN 0.02 NG/ML LESS THAN 0.02 NG/ML Total Protein 7.5 GM/DL Albumin 3.8 GM/DL Lipase 170 U/L Creatine Kinase MB 2.2 NG/ML 2.1 NG/ML Imaging Last 24 hours Impressions Chest X-Ray 12/23/17 1306 Signed Impressions: CONCLUSION: There are linear opacities at the lung bases most likely representing subsegmen nolan atelectasis or scar. Otherwise, no acute finding is identified. Assessment and Plan Assessment and Plan We will rule out for ischemic cardiac disease Patient has a negative d-dimer and no overt evidence of thrombus Patient believes he has exposure to mold and is referred post discharge to follow-up with his primary care physician for possible allergy Due to symptoms slightly elevated white count and chest x-ray changes he will be placed on outpatient antibiotic pending his follow-up with primary care physician Discussed Condition With Discussed with the patient and his and with the physician option trader Jaguar Alfonso MD Dec 24, 2017 09:08
[2017-12-24] MEDS: SODIUM CHLORIDE 0.9% FLUSH 10 ML FLUSH IV FLUSH SCH (09:14)
[2017-12-24] MEDS ORDERED: REGADENOSON INJ 0.4 MG/5 ML SYR ONE (10:03)
--- NOTE | 2017-12-24 11:53 | RADRPT ---
EXAM DATE: 12/24/2017 11:41 AM EDT AGE/SEX: 62 years / Male INDICATIONS:Angina. . Mid chest pain with shortness of breath for two weeks. CLINICAL DATA: This is the patient's initial encounter. Patient reports that signs and symptoms have been present for 2 weeks and indicates a pain score of 4/10. MEDICAL/SURGICAL HISTORY: Non-responsive. Colon resection. COMPARISON: No prior exams available for comparison. No external comparison. DOSE: 11.0 mCi Tc 99m Myoview at rest 35.0 mCi [id number] at stress 0.4 mg Lexiscan STRESS SYMPTOMS: Shortness of breath. EJECTION FRACTION: 65 % TECHNIQUE: The patient underwent pharmacologic stress with infusion of prescribed dose. Continuous ECG tracing was monitored during stress. Gated SPECT imaging was performed after stress and conventi onal SPECT imaging was performed at rest. The examination was performed on a SPECT/CT scanner, both attenuation and non-corrected datasets were reviewed. FINDINGS: Distribution: The maximum perfused segment at stress is in the inferolateral wall. Perfusion Study: The pattern of perfusion at stress is within normal limits. Gated Study: There are intact wall motion and wall thickening without hypokinetic or dyskinetic segm ents. The ejection fraction is calculated at 65%. RISK CATEGORY: Low (<1% Annual Motality Rate) CONCLUSION: 1. No definite reversible perfusion defects are identified to suggest stress-induced myocardial isch emia. Electronically signed by: Skyler Chavez MD 12/24/2017 11:52 AM EDT
[2017-12-24 12:00] VITALS: BP 152/72; PULSE 86; RESP 20; TEMP 97.3; O2SAT 96
[2017-12-24] MEDS ORDERED: LEVA750T9 PO (12:04)
--- NOTE | 2017-12-24 12:04 | HHI.DCPOC ---
Discharge Care Plan Diagnosis: (1) Dyspnea (2) Pneumonia Goals to Promote Your Health * To prevent worsening of your condition and complications * To maintain your health at the optimal level Directions to Meet Your Goals Take your medications as prescribed Follow your dietary instruction Follow activity as directed Keep your appointments as scheduled Take your immunizations and boosters as scheduled If your symptoms worsen call your PCP, if no PCP go to Urgent Care Center or Emergency Room Smoking is Dangerous to Your Health. Avoid second hand smoke Call the 24-hour hour crisis hotline for domestic abuse at Jose Juan Arvizu Dec 24, 2017 12:04
[2017-12-24] MEDS ORDERED: LEVOFLOXACIN 750 MG TAB PO ONE (12:15)
--- NOTE | 2017-12-24 12:25 | TR ---
Date Performed: 12/24/2017 Time Performed: 10:08:58 DOCTOR: Jaguar Alfonso DRUG LIST: CLINICAL HISTORY: ANGINA REASON FOR TEST: Angina REASON FOR ENDING: OBSERVATION: CONCLUSION: Lexiscan stress test was performed under standard four minute protocol. Radionuclide was injected one minute prior to ending the test. No electrocardiographic abormalities were present to suggest ischemia. Nuclear imaging and interpretation are pending. COMMENTS: Scan was negative for ischemia
--- NOTE | 2017-12-24 14:58 | EKG ---
Date Performed: 12/23/2017 Time Performed: 20:09:27 PTAGE: 62 years EKG: SINUS BRADYCARDIA POSSIBLE LEFT ATRIAL ENLARGEMENT INFERIOR MYOCARDIAL INFARCTION ABNORMAL ECG PREVIOUS TRACING : 12/23/2017 17.04 Since the previous tracing, no significant change noted DOCTOR: Merritt Isaac Interpretating Date/Time 12/24/2017 14:58:02
--- NOTE | 2017-12-24 15:04 | EKG ---
Date Performed: 12/23/2017 Time Performed: 17:04:54 PTAGE: 62 years EKG: SINUS BRADYCARDIA WITH SINUS ARRHYTHMIA POSSIBLE INFERIOR MYOCARDIAL INFARCTION BORDERLINE ECG PREVIOUS TRACING : 12/23/2017 14.00 Since the previous tracing, no significant change noted DOCTOR: Merritt Isaac Interpretating Date/Time 12/24/2017 15:03:40
--- NOTE | 2017-12-24 15:10 | EKG ---
Date Performed: 12/23/2017 Time Performed: 14:00:01 PTAGE: 62 years EKG: Sinus rhythm WITH SINUS ARRHYTHMIA POSSIBLE INFERIOR MYOCARDIAL INFARCTION BORDERLINE ECG PREVIOUS TRACING : 04/07/2017 10.43 Since the previous tracing, no significant change noted DOCTOR: Merirtt Isaac Interpretating Date/Time 12/24/2017 15:08:42
== END 2017-12-24 13:14 | disposition home or self-care (01) ==
LOC: NEPD 12:39 → NEDA 14:58 → NEPHCDU 16:02
PROVIDERS: ADMIT Internal Medicine Cardiovascular Disease; ATTEND Internal Medicine Cardiovascular Disease
DX: J18.9 Pneumonia, unspecified organism (principal); R00.1 Bradycardia, unspecified; I49.9 Cardiac arrhythmia, unspecified; R94.31 Abnormal electrocardiogram [ECG] [EKG]; K21.9 Gastro-esophageal reflux disease without esophagitis; G47.30 Sleep apnea, unspecified; E66.9 Obesity, unspecified; Z79.899 Other long term (current) drug therapy; Z79.82 Long term (current) use of aspirin; Z87.891 Personal history of nicotine dependence
CPT/HCPCS: 71046; 78452; 80048; 80076; 82550; 82552; 83690; 84484; 85025; 85379; 85610; 85730; 87040; 93005; 93017; 99285; A9502; G0378; J2785